=== PATIENT | male | born 1940 | race Caucasian/White ===

== ENCOUNTER → 2022-08-02 10:12 | Outpatient (CLI) | payer OTHER, SELFPAY ==
--- NOTE | 2022-08-02 | DI.NM.S_ITS ---
PROCEDURE: NM MARTIN PERF SPECT R&S PHARM Rest and pharmacological stress myocardial perfusion SPECT with gated imaging and ejection fraction RADIOPHARMACEUTICAL: 25.5 mCi Tc-99m tetrafosmin IV at rest and 24.7 mCi Tc-99m tetrafosmin IV at peak effect of pharmacological stress. [id number] was performed. INDICATIONS: Paroxysmal atrial fibrillation TECHNIQUE: Radiopharmaceutical was injected at peak stress test, and also at rest. SPECT images were obtained. SPECT myocardial perfusion images were displayed in short axis, horizontal long axis, and vertical long axis views. Gated images were reviewed using PhaseRx software. COMPARISON: None. CARDIAC STRESS: A pharmacologic stress test was performed under the supervision of an attending staff, using an infusion of lexiscan 0.4mg IV X1. Hemodynamic data: There is normal blood pressure and heart rate response to pharmacologic stress. Symptoms: The patient denied anginal chest pain. Aminophylline: none EKG: Atrial fibrillation present throughout the study. No diagnostic changes of ischemia; no ectopy. FINDINGS: Raw data: There is good myocardial uptake of radiotracer. No significant motion artifacts. Nwfs-me-vdnrc ratio is 0.25 (normal is less than 0.38 for tetrafosmin tracer). Left ventricle function: Gated images demonstrate normal left ventricular wall thickening. No segmental wall motion abnormalities. No transient ischemic dilation; TID is 0.9 (normal less than 1.3). Left ventricle resting end diastolic volume is 95 mL. Left ventricle stress ejection fraction is 75%; normal range is above 45%. Myocardial perfusion: No fixed or reversible perfusion defects on stress prone imaging. IMPRESSION: Low risk, normal pharmaceutical nuclear stress test. 1) No perfusion evidence of ischemia or infarction. 2) Normal left ventricular size, wall motion, and systolic function (EF post stress 75%). 3) No diagnostic ST changes with lexiscan. 4) No angina during the study. 5) No prior nuclear stress test available for comparison. Dictated by: Montana Davila MD on 08/03/2022 at 16:30 Approved by: Montana Davila MD on 08/03/2022 at 16:32
[2022-08-02 11:41] LABS: COVID19 -Nasal RAPID Negative (Negative)
== END ==
PROVIDERS: Internal Medicine Cardiovascular Disease; PCP Internal Medicine; Referring Provider Internal Medicine; Visit Provider Internal Medicine
DX: I48.0 Paroxysmal atrial fibrillation (principal); Z20.822 Contact with and (suspected) exposure to COVID-19
CPT/HCPCS: 78452; 87635; 93017; A9502; J2785

== ENCOUNTER → 2022-08-03 11:31 | Outpatient (CLI) | payer OTHER, SELFPAY ==
--- NOTE | 2022-08-03 11:33 | DI.ECHO.S_ITS ---
[facility] +---------+ : : [address] : : : : [id number] : : : : Phone: [phone]+ Echocardiogram Report + + :Name: SALOMÓN GOOD Study Date: 08/03/2022 Height: 71 in : :[facility] ReadingLocation: Weight: 270 lb : : Gender: Male BSA: 2.4 m2 : :: 1940 Age: 82 yrs BP: 149/98 mmHg: :Reason For Study: ATRIAL FIBRILLATION : :Ordering Physician: TOMY, : :BEST Performed By: Sera James : :Referring: BEST HUITRON : + + Interpretation Summary There is mild concentric left ventricular hypertrophy. The ejection fraction is estimated to be 60-65%. Diastolic function could not be accurately assessed due to atrial fibrillation. The right ventricle is normal in size and function. The left atrium is moderately dilated. The right atrium is mildly dilated. There is mild aortic regurgitation. Pulmonary artery pressures cannot be estimated because of the lack of a measurable TR jet velocity. The ascending aorta is mildly enlarged. Compared to the prior study dated 06/04/2014, the patient is now in atrial fibrillation atria are dilated and there is new aortic regurgitation. Procedure: A two-dimensional transthoracic echocardiogram with color flow and Doppler was performed. The study quality was technically adequate. Comparison is made with the echocardiogram of 06/04/2014. The patient was in atrial fibrillation with heart rates between 92-113 bpm during the exam. Left Ventricle: The left ventricle is normal in size. There is mild concentric left ventricular hypertrophy. The ejection fraction is estimated to be 60-65%. Diastolic function could not be accurately assessed due to atrial fibrillation. Right Ventricle: The right ventricle is normal in size and function. Atria: The left atrium is moderately dilated. The right atrium is mildly dilated. There is no Doppler evidence for an interatrial shunt. Mitral Valve: There is mild mitral annular calcification. The mitral valve is normal. There is trace mitral regurgitation. Aortic Valve: The aortic valve opens well. There is no aortic valve stenosis. There is mild aortic regurgitation. Tricuspid Valve: The tricuspid valve is normal in structure and function. There is trace tricuspid regurgitation. Pulmonary artery pressures cannot be estimated because of the lack of a measurable TR jet velocity. Pulmonic Valve: The pulmonic valve is not well seen, but is grossly normal. There is no pulmonic valvular regurgitation. Great Vessels: The aortic root is mildly dilated. The ascending aorta is mildly enlarged. The IVC is dilated (diameter is greater than 2.1 cm) yet it collapses greater than 50% with a sniff. This suggests a right atrial pressure of 8 mm Hg. Pericardium/ Pleura There is no pericardial effusion. There is no pleural effusion. MMode/2D Measurements & Calculations LVIDd: 4.6 cm LVOT diam: 2.3 cm LVIDs: 3.1 cm Ao root diam: 4.2 cm FS: 31.1 % asc Aorta Diam: 3.9 cm IVSd: 1.2 cm Ao Arch Diam (Prox Trans): 2.8 cm LVPWd: 1.3 cm LV napoles. diameter/BSA (cm/m^2): 1.9 LV sys. diameter/BSA (cm/m^2): 1.3 LA A2 area: 28.6 cm2 RA long axis: 5.4 cm LA A4 area: 26.9 cm2 RA area: 18.3 cm2 LA length (vol): 6.5 cm RA vol: 52.7 ml LA vol: 100.1 ml RA : 22.0 ml/m2 LA vol index: 41.8 ml/m2 IVC diam: 2.6 cm RVD1 (basal): 3.8 cm RVD2 (mid): 3.1 cm TAPSE: 1.6 cm Doppler Measurements & Calculations Ao V2 max: 110.7 cm/sec LVOT Max Familia: 91.2 cm/sec Ao V2 mean: 77.6 cm/sec LV V1 max P.3 mmHg Ao max P.9 mmHg LV V1 VTI: 17.2 cm Ao mean P.7 mmHg DUONG(I,D): 3.4 cm2 Ao V2 VTI: 20.7 cm DUONG(V,D): 3.3 cm2 sev ratio: 0.83 DUONG indexed to BSA (cm^2/m^2): 1.4 MV E max familia: 95.6 cm/sec PA V2 max: 70.8 cm/sec MV A max familia: 0.45 cm/sec PA V2 mean: 49.8 cm/sec MV E/A: 213.3 PA mean P.1 mmHg Med Peak E' Familia: 7.5 cm/sec PA pr(Accel): 34.5 mmHg E/E' med: 12.7 Lat Peak E' Familia: 9.5 cm/sec E/E' lat: 10.1 E/e' average: 11.4 MV dec time: 0.19 sec SVLVOT): 69.4 ml Reading Physician:03:25 PM
== END ==
PROVIDERS: PCP Internal Medicine; Referring Provider Internal Medicine; Visit Provider Internal Medicine
DX: I48.0 Paroxysmal atrial fibrillation (principal); I08.0 Rheumatic disorders of both mitral and aortic valves; I77.810 Thoracic aortic ectasia; I77.89 Other specified disorders of arteries and arterioles
CPT/HCPCS: 93306

== ENCOUNTER → 2024-02-07 12:22 | Outpatient (CLI) | payer OTHER, SELFPAY ==
--- NOTE | 2024-02-07 | DI.ECHO.S_ITS ---
[facility]---------+ [facility] : : [address] : : [id number] : : Phone: [phone] Echocardiogram Report + + :Name: SALOMÓN GOOD Study Date: 02/07/2024 Height: 72 in : :[facility] ReadingLocation: Weight: 260 lb : : Gender: Male BSA: 2.4 m2 : :: 1940 Age: 83 yrs BP: 130/75 mmHg: :Reason For Study: THORACIC AORTIC ECTASIA : :Ordering Physician: CHANTEL, : :MARY KATE Bethea Performed By: Sera James : :Referring: MARY KATE KOVACS : + + Interpretation Summary The patient was in atrial fibrillation with heart rates between 77-91 bpm during the exam. The ejection fraction is estimated to be 60-65%. Diastolic function could not be accurately assessed due to atrial fibrillation. The left atrium is moderately dilated. The right ventricle is normal in size and function. The right atrium is mildly dilated. There is mild mitral regurgitation. There is mild aortic regurgitation. There is mild tricuspid regurgitation. The right ventricular systolic pressure is estimated to be at least 33 mmHg based on an estimated right atrial pressure of 8 mm Hg. The ascending aorta is mildly enlarged, 3.9 cm. Compared to the prior study dated 08/03/2022, no significant change. Procedure: A two-dimensional transthoracic echocardiogram with color flow and Doppler was performed. The study quality was technically adequate. Comparison is made with the echocardiogram of 08/03/2022. The patient was in atrial fibrillation with heart rates between 77-91 bpm during the exam. Left Ventricle: The left ventricle is normal in size. There is borderline concentric left ventricular hypertrophy. The ejection fraction is estimated to be 60-65%. Diastolic function could not be accurately assessed due to atrial fibrillation. Right Ventricle: The right ventricle is normal in size and function. Atria: The left atrium is moderately dilated. The right atrium is mildly dilated. There is no Doppler evidence for an interatrial shunt. Mitral Valve: There is mild mitral annular calcification. The mitral valve leaflets appear normal. There is no evidence of stenosis, fluttering, or prolapse. There is mild mitral regurgitation. Aortic Valve: The aortic valve is trileaflet. The aortic valve opens well. There is no aortic valve stenosis. There is mild aortic regurgitation. Tricuspid Valve: The tricuspid valve is normal in structure and function. There is mild tricuspid regurgitation. The right ventricular systolic pressure is estimated to be at least 33 mmHg based on an estimated right atrial pressure of 8 mm Hg. Pulmonic Valve: The pulmonic valve leaflets are thin and pliable; valve motion is normal. There is trace pulmonic regurgitation. Great Vessels: The aortic root is normal size. The ascending aorta is mildly enlarged. The IVC is dilated (diameter is greater than 2.1 cm) yet it collapses greater than 50% with a sniff. This suggests a right atrial pressure of 8 mm Hg. Pericardium/ Pleura There is no pericardial effusion. There is no pleural effusion. MMode/2D Measurements & Calculations LVIDd: 4.5 cm LVOT diam: 2.2 cm LVIDs: 3.0 cm Ao root diam: 4.1 cm FS: 34.4 % asc Aorta Diam: 3.9 cm IVSd: 1.1 cm Ao Arch Diam (Prox Trans): 3.0 cm LVPWd: 0.91 cm LV napoles. diameter/BSA (cm/m^2): 1.9 LV sys. diameter/BSA (cm/m^2): 1.2 LA A2 area: 26.5 cm2 RA long axis: 5.2 cm LA A4 area: 28.9 cm2 RA area: 18.0 cm2 LA length (vol): 5.7 cm RA vol: 53.0 ml LA vol: 114.3 ml RA : 22.2 ml/m2 LA vol index: 48.0 ml/m2 IVC diam: 2.6 cm RVD1 (basal): 3.8 cm TAPSE: 1.5 cm Doppler Measurements & Calculations Ao V2 max: 112.4 cm/sec LVOT Max Familia: 103.4 cm/sec Ao V2 mean: 74.0 cm/sec LV V1 max P.3 mmHg Ao max P.1 mmHg LV V1 VTI: 20.9 cm Ao mean P.6 mmHg DUONG(I,D): 3.8 cm2 Ao V2 VTI: 20.1 cm DUONG(V,D): 3.3 cm2 sev ratio: 1.0 DUONG indexed to BSA (cm^2/m^2): 1.6 MV E max familia: 100.3 cm/sec TR max familia: 250.5 cm/sec MV A max familia: 0.56 cm/sec TR max P.1 mmHg MV E/A: 178.9 PA V2 max: 62.5 cm/sec Med Peak E' Familia: 9.0 cm/sec PA V2 mean: 41.0 cm/sec E/E' med: 11.2 PA mean P.78 mmHg Lat Peak E' Familia: 8.8 cm/sec PA pr(Accel): 37.9 mmHg E/E' lat: 11.5 E/e' average: 11.3 MV dec time: 0.19 sec SV(LVOT): 76.1 ml Reading Physician:03:08 PM
== END ==
PROVIDERS: PCP Internal Medicine; Referring Provider Internal Medicine Cardiovascular Disease; Visit Provider Internal Medicine Cardiovascular Disease
DX: I77.810 Thoracic aortic ectasia (principal); I08.3 Combined rheumatic disorders of mitral, aortic and tricuspid valves; I77.89 Other specified disorders of arteries and arterioles
CPT/HCPCS: 93306

== ENCOUNTER → 2025-03-25 08:42 | Outpatient (CLI) | payer OTHER, SELFPAY ==
[2025-03-25 09:58] LABS: Add Manual Diff / Slide Review NO; Hematocrit 41.3 % (41-53); Hemoglobin 14.0 g/dL (13.5-17.5); Lymphocytes Absolute Auto 900 /uL (1100-4500); Mean Corpuscular HGB Conc 33.9 % (30-36); Mean Corpuscular Hemoglobin 31.4 PG (26-34); Mean Corpuscular Volume 92.6 fL (80-100); Platelet Count 219 X10^3/uL (150-400)
[2025-03-25 10:04] LABS: Hemoglobin A1C% w Est Avg Glu 6.1 % (4.0-6.0)
[2025-03-25 10:17] LABS: Alanine Aminotransferase 21 IU/L (<50); Albumin 4.2 g/dL (3.5-5.0); Albumin Globulin Ratio 1.4 (1.0-2.8); Alkaline Phosphatase 62 U/L (38-126); Blood Urea Nitrogen 15 mg/dL (9-20); Calcium 9.4 mg/dL (8.4-10.2); Carbon Dioxide 34 mmol/L (22-32); Chloride 95 mmol/L (98-107); Estimated Glomerular Filt Rate > 60 mL/min (>60); Globulin 3.0 g/dL (1.7-4.1); Glucose 162 mg/dL (70-99); HEMOLYSIS < 15 (0-50); Potassium 4.2 mmol/L (3.4-5.1); Sodium 139 mmol/L (137-145); Total Protein 7.2 g/dL (6.3-8.2)
[2025-03-25 11:05] LABS: Vitamin B12 Reflex MMA if <400 631 pg/mL (239-931)
== END ==
PROVIDERS: PCP Family Medicine; Referring Provider Family Medicine; Visit Provider Family Medicine
DX: G62.9 Polyneuropathy, unspecified (principal); Z12.5 Encounter for screening for malignant neoplasm of prostate; Z99.89 Dependence on other enabling machines and devices; Z68.36 Body mass index [BMI] 36.0-36.9, adult; E78.5 Hyperlipidemia, unspecified; I10 Essential (primary) hypertension; Z86.79 Personal history of other diseases of the circulatory system
CPT/HCPCS: 36415; 80053; 82607; 83036; 85025; G0103

== ENCOUNTER → 2025-05-13 13:40 | Outpatient (CLI) | payer OTHER, SELFPAY ==
--- NOTE | 2025-05-13 13:41 | DI.RAD.S_ITS ---
PROCEDURE: XR LUMBAR SPINE 2-3V INDICATIONS: lower back pain TECHNIQUE: 3 views of the lumbar spine were acquired. COMPARISON: None. FINDINGS: Bones: 5 [id number] vertebrae are present. There is normal bony alignment. Moderate spondylitic changes are noted throughout lower thoracic and lumbar spine. Up No vertebral body compression fractures. No suspicious bony lesions. Soft tissues: Overlying bowel gas pattern is normal. No suspicious soft tissue calcifications. IMPRESSION: Moderate spondylitic changes throughout lumbar spine. No acute compression fracture or significant spondylolisthesis. Dictated by: Ronnie Reza M.D. on 05/13/2025 at 15:19 Approved by: Ronnie Reza M.D. on 05/13/2025 at 15:20
--- NOTE | 2025-05-13 13:41 | DI.RAD.S_ITS ---
PROCEDURE: XR CERVICAL SPINE 2V OR 3V INDICATIONS: lower back pain TECHNIQUE: 3 view(s) of the cervical spine were acquired. COMPARISON: None. FINDINGS: Bones: Post ACDF changes are noted at C5 through T1 levels. There is straightening of normal cervical lordosis . No acute fracture or dislocation. 5 mm anterolisthesis of C3 on C4. Degenerative endplate changes and bilateral facet hypertrophic changes are noted throughout cervical spine. The lateral masses of C1 appear intact on the odontoid view. No suspicious bony lesions. Soft tissues: No prevertebral soft tissue swelling. IMPRESSION: Post ACDF changes in mid to lower cervical spine. Straightening of normal cervical lordosis. No acute fracture or dislocation. No gross hardware loosening or failure. Grade 1 anterolisthesis of C3 on C4. Spondylitic changes throughout cervical spine. Dictated by: Ronnie Reza M.D. on 05/13/2025 at 15:18 Approved by: Ronnie Reza M.D. on 05/13/2025 at 15:19
== END ==
PROVIDERS: PCP Family Medicine; Referring Provider Family Medicine; Visit Provider Family Medicine
DX: M47.812 Spondylosis without myelopathy or radiculopathy, cervical region (principal); M43.12 Spondylolisthesis, cervical region; M47.814 Spondylosis without myelopathy or radiculopathy, thoracic region; M47.816 Spondylosis without myelopathy or radiculopathy, lumbar region; M54.2 Cervicalgia; M54.50 Low back pain, unspecified; G89.29 Other chronic pain; Z98.1 Arthrodesis status; Z98.890 Other specified postprocedural states
CPT/HCPCS: 72040; 72100

== ENCOUNTER 2025-06-12 09:54 | Day surgery (SDC) | payer OTHER, SELFPAY ==
[2025-05-27 09:22] VITALS: BMI 36.1
[2025-06-12 10:25] VITALS: BP 158/90; PULSE 96; RESP 18; TEMP 36.2; O2SAT 97
[2025-06-12] MEDS: LACTATED RINGERS 1,000 ML 42 ML IV (10:51)
[2025-06-12] MEDS: ACETAMINOPHEN 325 MG TABLET 975 MG PO (10:57)
--- NOTE | 2025-06-12 12:03 | PM.PREOP ---
Pre-operative Note COVID-19 COVID-19 status: Not tested Interval Note History & Physical reviewed/Exam performed by Physician: Yes Changes to H&P: No
--- NOTE | 2025-06-12 13:00 | SUR.OPER ---
Supine on padded OR bed, head on pillow, non operative arm secured on padded arm boards at <90 degrees abduction, operative arm on padded arm board, legs uncrossed, safety belt at thigh, tape over blanket over lower legs. All pressure points padded and secured.
[2025-06-12 13:57] VITALS: BP 123/61; PULSE 92; RESP 24; TEMP 36.8; O2SAT 94
[2025-06-12 14:00] VITALS: BP 122/77; PULSE 100; RESP 22; O2SAT 95
[2025-06-12 14:05] VITALS: BP 116/67; PULSE 93; RESP 12; O2SAT 95
--- NOTE | 2025-06-12 14:05 | PM.OP.1 ---
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 Consent was verified and operative extremity was signed. The patient then met with anesthesia and was brought back to the operating room. The patient was placed supine on the operating table. Anesthetic was administered. The extremity was then prepped and draped in the usual sterile fashion. A timeout was performed per protocol. An 8 cm incision was made at the medial aspect of the elbow centered between the medial epicondyle and olecranon.? Dissection was taken down to the cubital tunnel and the ulnar nerve was exposed and the cubital tunnel was released. Dissection was taken up proximally and to ensure that the ulnar nerve was completely released proximally and distally the nerve was traced into the flexor carpi ulnaris muscle belly the overlying fascia was released and I ensured that the nerve was free distally as well.? After complete release of the ulnar nerve I then ranged the elbow with flexion and extension and the nerve was subluxing. It was also noted that it subluxed prior to release. The nerve had been encased in scar tissue and the scar tissue was release as well. I then made a subcutaneous adipose flap and placed the nerve anterior to the medial epicondyle. The flap was held in place with 2-0 Ethibond. The nerve was not under any tension. The wound was copiously irrigated. The elbow incision was closed with 2-0 Vicryl and 3-0 Monocryl.? A sterile dressing was applied consisting of Xeroform over the carpal tunnel incision and Steri-Strips were used over the medial elbow incision next plain gauze was used as well as sterile Webril and a posterior splint was placed. at the end of the case 20 cc 0.5% Marcaine plain was injected into the incision sites.? The patient was awoken and taken to the PACU in stable condition.? All counts were correct at the end of the case.? Complications: none Post-operative Condition: stable Disposition: PACU
[2025-06-12 14:11] VITALS: BP 100/62; PULSE 91; RESP 18; O2SAT 93
[2025-06-12 14:13] VITALS: BP 112/72; PULSE 86; RESP 25; O2SAT 93
== END 2025-06-12 14:45 | disposition home or self-care (01) ==
PROVIDERS: PCP Family Medicine; Referring Provider Orthopaedic Surgery; Visit Provider Orthopaedic Surgery
PROC: (CPT 64721; principal; 2025-06-12 11:45)
DX: G56.22 Lesion of ulnar nerve, left upper limb (principal)
CPT/HCPCS: 64718; J0689; J1171; J2704; J7120

== ENCOUNTER → 2025-07-08 08:17 | Outpatient (CLI) | payer OTHER, SELFPAY ==
[2025-07-08 09:55] LABS: Prostate Specific Antigen 12.2 ng/mL (0.10-4.00)
== END ==
PROVIDERS: PCP Family Medicine; Referring Provider Urology; Visit Provider Urology
DX: R97.20 Elevated prostate specific antigen [PSA] (principal)
CPT/HCPCS: 36415; 84153